=== PATIENT | female | born 1985 | race Caucasian/White ===

== ENCOUNTER 2017-05-19 03:11 | Emergency (ER) | payer BC, OTHER ==
[~2017-05-19] VITALS: Ht 180.3 cm; Wt 94.1 kg
[~2017-05-19 03:11] MED LIST: CETI10TA84 PO; INUL6.5C PO; PRENTAB26 PO
[2017-05-19] MEDS ORDERED: ONDANSETRON INJ 2 MG/ML 2 ML VIAL IV STA (03:14)
[2017-05-19] MEDS ORDERED: SODIUM CHLORIDE 0.9% 1000ML 1,000 ML IV STA (03:14)
--- NOTE | 2017-05-19 03:18 | EMERGENCY ROOM VISIT NOTE ---
History Report prepared by Susana: Johana Heller Under the Supervision of: Dr. Khoi Conroy M.D. First contact with patient: 03:10 Chief Complaint: ALCOHOL OVERDOSE Stated Complaint: ALCOHOL OVERDOSE History of Present Illness The patient is a 31 year old female who presents to the Emergency Room with complaints of an alcohol overdose. Per her , there are no concerns for drug abuse or head injury. She notes drinking wine and vodka at a libertarian earlier. concerned given she vomited and seemed very intoxicated. He denies other concerns. Admits patient rarely drinks Etoh and never as much as today. Patient denies any symptoms though this is limited HPI secondary to alcohol intoxication. Source of History: EMS History Limited By: intoxication (alcohol) Review of Systems Limited ROS secondary to alcohol intoxication. Past Medical & Surgical Medical Problems: (1) Contusion Face/Scalp/Nck (2) Hyperparathyroidism, Unspecified Surgical Problems: (1) Hx of LASIK (2) S/P tonsillectomy (3) [place] teeth removed Unable to obtain medical history sheet secondary to alcohol intoxication. Family History Unable to obtain medical history sheet secondary to alcohol intoxication. Social History Social History: Unable to obtain medical history sheet secondary to alcohol intoxication. Current/Historical Medications No Active Prescriptions or Reported Meds Allergies Coded Allergies: No Known Allergies (Unverified , 05/19/17) Physical Exam Vital Signs Date Time Temp Pulse Resp B/P (MAP) Pulse Ox O2 Delivery O2 Flow Rate FiO2 05/19/17 06:16 84 18 95 Room Air 05/19/17 06:01 91/51 05/19/17 05:46 84 25 97 Room Air 05/19/17 05:16 79 19 98 Room Air 05/19/17 05:01 103/58 05/19/17 04:46 76 18 98 05/19/17 04:41 85 17 98 Room Air 05/19/17 04:11 79 19 95 Room Air 05/19/17 04:01 99/60 05/19/17 03:41 75 19 93 Room Air 05/19/17 03:20 71 05/19/17 03:20 36.3 71 17 110/71 98 Room Air 05/19/17 03:16 110/71 Physical Exam GENERAL: Patient is moderately intoxicated. Smells of alcohol. Well appearing and in no acute distress. HEAD: No evidence of Trauma. AT/NC EYES: Injected conjunctiva. Normal EOM. Pupils equal/reactive. ENT: Mucous membranes moist, no nasal congestion, . NECK: No step-offs, no adenopathy, no meningismus, trachea is midline. LUNGS: No dyspnea. Clear to auscultation and equal bilaterally. No wheeze, no rhonchi. HEART: Regular rate and rhythm. No murmurs, rubs, gallops appreciated. ABDOMEN: Soft, nontender, bowel sounds positive, no masses appreciated, no peritonitis. BACK: No midline tenderness, no CVA tenderness EXTREMITIES: Normal motion all extremities, no cyanosis, no edema. NEUROLOGIC: Intoxicated. Slurred, simple speech. Alert, oriented. No acute motor or sensory deficits, no focal weakness, cranial nerves grossly intact. SKIN: No rash, no jaundice, no diaphoresis. Medical Decision & Procedures Laboratory Results 05/19/17 03:28 Red Blood Count 4.52, Mean Corpuscular Volume 87.8, Mean Corpuscular Hemoglobin 30.3, Mean Corpuscular Hemoglobin Concent 34.5, Mean Platelet Volume 9.4, Neutrophils (%) (Auto) 68.9, Lymphocytes (%) (Auto) 22.2, Monocytes (%) (Auto) 7.4, Eosinophils (%) (Auto) 0.9, Basophils (%) (Auto) 0.3, Neutrophils # (Auto) 5.25, Lymphocytes # (Auto) 1.69, Monocytes # (Auto) 0.56, Eosinophils # (Auto) 0.07, Basophils # (Auto) 0.02 05/19/17 03:28 Test 05/19/17 03:28 White Blood Count 7.61 K/uL (4.8-10.8) Red Blood Count 4.52 M/uL (4.2-5.4) Hemoglobin 13.7 g/dL (12.0-16.0) Hematocrit 39.7 % (37-47) Mean Corpuscular Volume 87.8 fL (80-100) Mean Corpuscular Hemoglobin 30.3 pg (25-34) Mean Corpuscular Hemoglobin Concent 34.5 g/dl (32-36) Platelet Count 280 K/uL (130-400) Mean Platelet Volume 9.4 fL (7.4-10.4) Neutrophils (%) (Auto) 68.9 % Lymphocytes (%) (Auto) 22.2 % Monocytes (%) (Auto) 7.4 % Eosinophils (%) (Auto) 0.9 % Basophils (%) (Auto) 0.3 % Neutrophils # (Auto) 5.25 K/uL (1.4-6.5) Lymphocytes # (Auto) 1.69 K/uL (1.2-3.4) Monocytes # (Auto) 0.56 K/uL (0.11-0.59) Eosinophils # (Auto) 0.07 K/uL (0-0.5) Basophils # (Auto) 0.02 K/uL (0-0.2) RDW Standard Deviation 39.7 fL (36.4-46.3) RDW Coefficient of Variation 12.3 % (11.5-14.5) Immature Granulocyte % (Auto) 0.3 % Immature Granulocyte # (Auto) 0.02 K/uL (0.00-0.02) Anion Gap 10.0 mmol/L (3-11) Est Creatinine Clear Calc Drug Dose 130.0 ml/min Estimated GFR () 114.7 Estimated GFR (Non- 98.9 BUN/Creatinine Ratio 12.0 (10-20) Calcium Level 8.3 mg/dl (8.5-10.1) Total Bilirubin 0.2 mg/dl (0.2-1) Direct Bilirubin < 0.1 mg/dl (0-0.2) Aspartate Amino Transf (AST/SGOT) 30 U/L (15-37) Alanine Aminotransferase (ALT/SGPT) 38 U/L (12-78) Alkaline Phosphatase 90 U/L (45-117) Total Protein 7.6 gm/dl (6.4-8.2) Albumin 3.8 gm/dl (3.4-5.0) Lipase 136 U/L (73-393) Human Chorionic Gonadotropin, Qual NEG (NEG) Chemistry Specimen Hemolysis Ethyl Alcohol mg/dL 164.0 mg/dl (0-3) Laboratory results as reviewed by me. Medications Administered Medications (Trade) Dose Ordered Sig/Uriel Route Start Time Stop Time Status Last Admin Dose Admin Sodium Chloride 1,000 ml @ 999 mls/hr Q1H1M STAT IV 05/19/17 03:14 05/19/17 04:14 DC 05/19/17 03:39 999 MLS/HR Ondansetron HCl (Zofran Inj) 4 mg NOW STAT IV 05/19/17 03:14 05/19/17 03:15 DC 05/19/17 03:39 4 MG Ondansetron HCl (ZOFRAN ODT 4MG Home Pack) 1 homepack UD ONCE PO 05/19/17 06:45 05/19/17 06:46 DC 05/19/17 06:45 1 HOMEPACK ED Course 0300: The patient was evaluated in room B4B. A complete history and physical exam was performed. 0314: Ordered Zofran Inj 4 mg IV, Sodium Chloride 1,000 ml @ 999 mls/hr IV. 0637: The patient is awake, alert, oriented, and feeling much better. 0645: Ordered Ondansetron HCl 1 homepack PO. 0650: Reevaluated the patient. Discussed results and discharge instructions: She verbalized understanding and agreement. The patient is ready for discharge. Medical Decision Differential: Alcohol Intoxication, Drug Intoxication, Electrolyte Abnormality, Trauma, Intracranial Event, Toxicological, Excited Delirium, Serotonin Syndrome , amongst other pathologies entertained. Blood pressure screening: Patient was found to have normal blood pressure on screening and does not require follow-up. Medication Reconciliation: I attest that I have personally reviewed the patient 's current medication list. 31 yr old intoxicated female brought in by EMS after got concerned due to patient vomiting and alcohol intoxication. Patient with no evidence nor history for trauma. Protecting airway and breathing comfortably throughout ED stay. EtOH positive. IV fluids and slept for several hours. Monitored and discharged when awake, alert, oriented and denies any complaints. Impression Primary Impression: Alcohol intoxication Additional Impression: Nausea & vomiting Scribe Attestation The scribe's documentation has been prepared under my direction and personally reviewed by me in its entirety. I confirm that the note above accurately reflects all work, treatment, procedures, and medical decision making performed by me. Departure Information Dispostion Home / Self-Care Prescriptions No Active Prescriptions or Reported Meds Patient Instructions Alcohol Intoxication - [facility], [facility] Health Problem Qualifiers Primary Impression: Alcohol intoxication Complication of substance-induced condition: uncomplicated Qualified Codes: F10.920 - Alcohol use, unspecified with intoxication, uncomplicated
[2017-05-19 03:20] VITALS: TEMP 36.3; Ht 180.3 cm; Wt 94.1 kg
[2017-05-19 03:42] LABS: BASO % 0.3 %; BASO ABS # 0.02 K/uL (0-0.2); COMPLETE YES; EOS % 0.9 %; HEMATOCRIT 39.7 % (37-47); IG% 0.3 %; LYMPH % 22.2 %; LYMPH ABS # 1.69 K/uL (1.2-3.4); MEAN CELL VOLUME 87.8 fL (80-100); MEAN CORPUSCULAR HEMOGLOBIN 30.3 pg (25-34); MEAN CORPUSCULAR HGB CONC 34.5 g/dl (32-36); MEAN PLATELET VOLUME 9.4 fL (7.4-10.4); MONO % 7.4 %; NEUT % 68.9 %; PLATELET COUNT 280 K/uL (130-400); RED BLOOD COUNT 4.52 M/uL (4.2-5.4); WHITE BLOOD COUNT 7.61 K/uL (4.8-10.8)
[2017-05-19 03:55] LABS: PREG INTERNAL NEGATIVE QC NEG CLEAR BACKGROUND; PREG INTERNAL POSITIVE QC POS CONTROL LINE
[2017-05-19 04:08] LABS: ALKALINE PHOSPHATASE 90 U/L (45-117); ALT/SGPT 38 U/L (12-78); AST/SGOT 30 U/L (15-37); BLOOD UREA NITROGEN 10 mg/dl (7-18); CALCIUM 8.3 mg/dl (8.5-10.1); CARBON DIOXIDE 24 mmol/L (21-32); CHLORIDE 109 mmol/L (98-107); GLUCOSE 105 mg/dl (70-99); POTASSIUM 3.8 mmol/L (3.5-5.1); SODIUM 143 mmol/L (136-145)
[2017-05-19 06:01] VITALS: BP 91/51
[2017-05-19 06:16] VITALS: PULSE 84; O2SAT 95
[2017-05-19] MEDS ORDERED: ONDANSETRON HOME PACK 4MG OD TAB PO ONE (06:45)
== END 2017-05-19 06:47 | disposition home or self-care (01) ==
LOC: EDBD 03:11 → C.EDB 03:14
DX: F10.920 Alcohol use, unspecified with intoxication, uncomplicated (principal); Y90.6 Blood alcohol level of 120-199 mg/100 ml; R11.2 Nausea with vomiting, unspecified

== ENCOUNTER 2018-01-17 21:23 | Emergency (ER) | payer OTHER ==
[~2018-01-17] VITALS: Ht 180.3 cm; Wt 107.5 kg
[2018-01-17 21:35] VITALS: TEMP 36.7; Ht 180.3 cm; Wt 107.5 kg
--- NOTE | 2018-01-17 22:43 | EMERGENCY ROOM VISIT NOTE ---
History Report prepared by Susana: Gita Dye Under the Supervision of: Dr. Umesh Ellis D.O. 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 She notes she was coughing up "a lot of green junk." She has a a slight cough, neck cramps, fatigue, and a headache but denies a sore throat and is unsure if she has had a fever. She reports her daughter was flu positive. She is currently around 20 weeks . 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 A total of 10 systems reviewed and were otherwise negative. Past Medical & Surgical Medical Problems: (1) Contusion Face/Scalp/Nck (2) Hyperparathyroidism, Unspecified Surgical Problems: (1) Hx of LASIK (2) S/P tonsillectomy (3) [place] teeth removed Family History Diabetes mellitus FH: cancer FH: heart disease FHx: lung disease Hypertension Kidney stones Social History Smoking Status: Never Smoker Alcohol Use: none Drug Use: none Marital Status: Housing Status: lives with significant other Occupation Status: employed Current/Historical Medications Scheduled Azithromycin (Zithromax Z-Jc), 1 PKT PO UD Fiber (Fiber Formula), 1 CAP PO DAILY Vit W/ Ferrous Fumara (), 1 TAB PO DAILY Sertraline (Zoloft), 50 MG PO DAILY Allergies Coded Allergies: No Known Allergies (Unverified , 05/19/17) Physical Exam Vital Signs Date Time Temp Pulse Resp B/P (MAP) Pulse Ox O2 Delivery O2 Flow Rate FiO2 01/17/18 23:44 94 18 120/67 97 Room Air 01/17/18 21:35 36.7 99 20 138/79 98 Room Air Physical Exam GENERAL: Patient is awake, alert, and in no acute distress. Patient is resting comfortably and showing no signs of anxiety EYES: The conjunctivae are clear. The pupils are round and reactive. EARS, NOSE, MOUTH AND THROAT: The nose is without any evidence of any deformity. Mucous membranes are moist tongue is midline NECK: The neck is nontender and supple. RESPIRATORY: Normal respiratory effort is noted there is no evidence of wheezing rhonchi or rales CARDIOVASCULAR: Regular rate and rhythm noted there no murmurs rubs or gallops normal S1 normal S2 GASTROINTESTINAL: The abdomen is soft. Bowel sounds are present in all quadrants. Abdomen is nontender MUSCULOSKELETAL/EXTREMITIES: There is no evidence of gross deformity full range of motion is noted in the hips and shoulders SKIN: There is no obvious evidence of any rash. There are no petechiae, pallor or cyanosis noted. NEUROLOGIC: Patient is awake alert and oriented x3 Medical Decision & Procedures Laboratory Results Test 01/17/18 00:00 Influenza Type A Antigen Neg for Influ A (NEG) Influenza Type B Antigen Neg for Influ B (NEG) Laboratory results per my review. ED Course 2235: The patient was evaluated in room A2. A complete history and physical examination were performed. 2313: Upon reevaluation, the patient is content. I discussed the results and treatment plan with her. She wants to go home with an antibiotic prescription. She verbalized agreement of the treatment plan. She was discharged home. Medical Decision Prior records/ancillary studies reviewed. Triage Nursing notes reviewed. The patient's history was concerning for respiratory difficulties. Differential diagnosis: Etiologies such as infections, reactive airway disease, pneumonia, pneumothorax , COPD, CHF, cardiac ischemia, pulmonary embolism, musculoskeletal, gastrointestinal, as well as others were entertained. The patient is a 32-year-old female who presented to emergency department with flulike symptoms. The patient was not hypoxic. Her breath sounds were normal. The patient is currently and did not wish to have an x-ray at this time. I do feel the patient's overall condition appears to be consistent with a viral syndrome. Because she is she was concerned that she may have an underlying bacterial infection. She does have a productive cough. For this reason she was given a prescription for an antibiotic and encouraged to start the antibiotic on Saturday if symptoms are not significantly improved within the next 24 hours. Otherwise she was encouraged to continue using Tylenol for pain and fever and follow-up with the primary care physician for further evaluation. Medication Reconcilliation Current Medication List: was personally reviewed by me Blood Pressure Screening Patient's blood pressure: Normal blood pressure Blood pressure disposition: Did not require urgent referral Impression Primary Impression: Bronchitis Additional Impression: Upper respiratory infection Scribe Attestation The scribe's documentation has been prepared under my direction and personally reviewed by me in its entirety. I confirm that the note above accurately reflects all work, treatment, procedures, and medical decision making performed by me. Departure Information Dispostion Home / Self-Care Prescriptions Azithromycin (ZITHROMAX Z-JC) 250 Mg Tab 1 PKT PO UD for 5 Days, #6 TAB Prov: Umesh Ellis, DO 01/17/18 Referrals Saul Gambino D.O. (PCP) Forms HOME CARE DOCUMENTATION FORM, IMPORTANT VISIT INFORMATION Patient Instructions My [facility] Additional Instructions Call your primary care physician to schedule follow-up appointment. Continue using Tylenol as directed for fever and body aches. Fill the prescription for the antibiotic if symptoms are not improved in 24 hours. Return to the emergency department immediately if symptoms change worsen or the need arises. Problem Qualifiers Additional Impression: Upper respiratory infection URI type: unspecified URI Qualified Codes: J06.9 - Acute upper respiratory infection, unspecified
[2018-01-17 22:49] LABS: INFLUENZA B ANTIGEN Neg for Influ B (NEG)
[2018-01-17] MEDS ORDERED: AZITTAB PO (23:18)
[2018-01-17] MEDS ORDERED: SERT50TA PO (23:24)
[2018-01-17] MEDS ORDERED: PREN1TAB29 PO (23:25)
[2018-01-17] MEDS ORDERED: FIBE1CAP PO (23:26)
[2018-01-17 23:44] VITALS: BP 120/67; PULSE 94; O2SAT 97
== END 2018-01-17 23:46 | disposition home or self-care (01) ==
LOC: C.EDB 21:24 → C.EDA 23:46
DX: J40 Bronchitis, not specified as acute or chronic (principal); J06.9 Acute upper respiratory infection, unspecified; E21.3 Hyperparathyroidism, unspecified; Z83.3 Family history of diabetes mellitus; Z82.49 Family history of ischemic heart disease and other diseases of the circulatory system